=== PATIENT | female | born 1960 | race Hispanic/Latino ===

== ENCOUNTER → 2025-05-20 | Day surgery (SDC) | payer MEDICARE ==
[2025-05-19 09:09] LABS: BASOPHILS % 0.4 % (0.0-1.0); EOSINOPHILS % 2.2 % (0.0-6.0); LYMPHOCYTES % 26.7 % (18.0-39.1); MONOCYTES % 7.3 % (4.4-11.3); NEUTROPHILS % 63.1 % (38.7-80.0); RED CELL DISTRIBUTION WIDTH 13.5 % (11.7-14.4)
[2025-05-19 09:44] LABS: EST GLOMERULAR FILTRATION RATE 74.0 ML/MIN (>=60)
[~2025-05-20] MED LIST: ACETAMINOPHEN 1000 MG/100 ML 100 ML IV ONE; ASPIRIN 325 MG TAB PO SCH; CEFAZOLIN SODIUM 2 GM ONE; CEFAZOLIN SODIUM 2 GM in SODIUM CHLORIDE 0.9% 100 ML IV SCH; CELECOXIB 100 MG CAP PO SCH; CRESTOR40 MG PO; DOCUSATE SODIUM 100 MG CAP PO PRN; FAMOTIDINE 20 MG/2 ML VIAL IV ONE; FENTANYL CITRATE/PF 100MCG/2 ML INJ ONE; FUROSEMIDE40 MG PO; GLYCOPYRROLATE INJ 0.2 MG/ML VIAL ONE; HYDROCODONE/APAP 7.5MG-325MG 1 EA TAB PO PRN; KETOROLAC TROMETHAMINE 30 MG/ML VIAL IV PRN; LACTATED RINGER'S 1,000 ML ONE; METFORMIN HCL500 MG PO; METOCLOPRAMIDE HCL 10 MG/2ML VIAL ONE; ONDANSETRON HCL INJ 2MG/ML 2ML 2 MG/ML VIAL IV PRN; ONDANSETRON HCL INJ 2MG/ML 2ML 2 MG/ML VIAL ONE; PROPOFOL IV EMULSION 10 MG/ML 20 ML VIAL ONE; ROCURONIUM BROMIDE 1 ML IV ONE; ROPIVACAINE/EPI/CLONIDINE/KET 50 ML SYRINGE INJ ONE; SUCCINYLCHOLINE CHLORIDE 20 MG/ML 10ML VIAL ONE; SUGAMMADEX SODIUM 200 MG/2 ML VIAL IV ONE; ZESTRIL10 MG PO
[2025-05-20 09:15] VITALS: TEMP 97.7
[2025-05-20] MEDS: FENTANYL CITRATE/PF 100MCG/2 ML INJ ONE (09:45)
[2025-05-20] MEDS: HYDROCODONE/APAP 10MG-325MG TAB ONE (10:30)
[2025-05-20 11:10] VITALS: BP 150/79; PULSE 69; RESP 18; O2SAT 100
== END | disposition home or self-care (01) ==
LOC: OR 05:29
PROVIDERS: ATTEND Orthopaedic Surgery Adult Reconstructive Orthopaedic Surgery
DX: M17.11 Unilateral primary osteoarthritis, right knee (principal); Z01.810 Encounter for preprocedural cardiovascular examination; Z01.812 Encounter for preprocedural laboratory examination
CPT/HCPCS: 27447; 36415 ×2; 71046; 73560; 80048; 82948; 85025; 86850; 86900; 93005; 97110; 97116; 97161; C1713; C1776 ×4; J0131; J0330; J0690; J1308; J2405; J2704; J2765; J3010; J7121

== ENCOUNTER → 2025-08-19 | Day surgery (SDC) | payer MEDICARE ==
[2025-08-12 12:43] LABS: BASOPHILS % 0.6 % (0.0-1.0); EOSINOPHILS % 9.8 % (0.0-6.0); LYMPHOCYTES % 22.5 % (18.0-39.1); MONOCYTES % 7.9 % (4.4-11.3); NEUTROPHILS % 58.9 % (38.7-80.0); RED CELL DISTRIBUTION WIDTH 13.2 % (11.7-14.4)
[2025-08-12 13:07] LABS: EST GLOMERULAR FILTRATION RATE 68.0 ML/MIN (>=60)
[~2025-08-19] MED LIST changes: -CEFAZOLIN SODIUM 2 GM in SODIUM CHLORIDE 0.9% 100 ML IV SCH; +DYMISTA NASAL S23 GM INH; -FAMOTIDINE 20 MG/2 ML VIAL IV ONE; -FENTANYL CITRATE/PF 100MCG/2 ML INJ ONE; -GLYCOPYRROLATE INJ 0.2 MG/ML VIAL ONE; +HYDROCODONE/APAP 7.5MG-325MG 1 EA TAB ONE; -HYDROCODONE/APAP 7.5MG-325MG 1 EA TAB PO PRN; +HYDROMORPHONE 2MG/ML ONE; -KETOROLAC TROMETHAMINE 30 MG/ML VIAL IV PRN; +LIDOCAINE HCL (LTA) 4 ML SOLN ONE; +LIDOCAINE HCL 2% LOCAL INJ 5 ML SDV VIAL INJ ONE; +PHENYLEPHRINE HCL 1% 10 MG/ML VIAL ONE
[2025-08-19] MEDS: HYDROMORPHONE 1MG/1ML INJ ONE (12:43)
[2025-08-19] MEDS: HYDROCODONE/APAP 7.5MG-325MG 1 EA TAB PO PRN (14:15)
[2025-08-19] MEDS: ONDANSETRON HCL INJ 2MG/ML 2ML 2 MG/ML VIAL ONE (14:26)
[2025-08-19 14:45] VITALS: BP 131/73; PULSE 66; RESP 17; O2SAT 98
== END | disposition home or self-care (01) ==
LOC: OR 08:09
PROVIDERS: ATTEND Orthopaedic Surgery Adult Reconstructive Orthopaedic Surgery
DX: M17.12 Unilateral primary osteoarthritis, left knee (principal); Z96.651 Presence of right artificial knee joint; M06.9 Rheumatoid arthritis, unspecified; G47.33 Obstructive sleep apnea (adult) (pediatric); I10 Essential (primary) hypertension; E78.5 Hyperlipidemia, unspecified; E11.9 Type 2 diabetes mellitus without complications; E66.01 Morbid (severe) obesity due to excess calories; Z91.041 Radiographic dye allergy status; Z01.812 Encounter for preprocedural laboratory examination; Z79.84 Long term (current) use of oral hypoglycemic drugs; Z79.899 Other long term (current) drug therapy
CPT/HCPCS: 27447; 36415 ×2; 73560; 80048; 82948; 85025; 86850; 86900; 97116; 97161; C1713; C1776 ×3; J0131; J0330; J1171 ×2; J2003; J2371; J2405; J2704; J2765; J7121